=== PATIENT | female | born 1980 | race Caucasian/White ===

== ENCOUNTER → 2017-05-23 | Outpatient (CLI) | payer MEDICAID ==
[~2017-05-23] MED LIST: ONDA1TAB17 PO; PREN29TA PO
== END ==
LOC: HPND 09:40
PROVIDERS: ATTEND Family Medicine
DX: O09.521 Supervision of elderly multigravida, first trimester (principal)
CPT/HCPCS: 36415; 76813

== ENCOUNTER → 2017-07-04 | Outpatient (CLI) | payer MEDICAID ==
[~2017-07-04] MED LIST changes: -ONDA1TAB17 PO; +ONDA8TAB7 PO
== END ==
LOC: HPND 08:08
PROVIDERS: ATTEND Family Medicine
DX: O09.522 Supervision of elderly multigravida, second trimester (principal); O35.1XX0 Maternal care for (suspected) chromosomal abnormality in fetus, not applicable or unspecified
CPT/HCPCS: 76811; 76817

== ENCOUNTER → 2017-08-24 | Outpatient (CLI) | payer MEDICAID | LOC: HPND 07:58 | DX: O09.522 Supervision of elderly multigravida, second trimester (principal); O35.1XX0 Maternal care for (suspected) chromosomal abnormality in fetus, not applicable or unspecified | CPT/HCPCS: 76816 ==

== ENCOUNTER 2017-09-03 20:20 | Emergency (ER) | payer MEDICAID ==
[~2017-09-03] VITALS: Ht 167.6 cm; Wt 68.9 kg
[~2017-09-03 20:20] MED LIST changes: +SUCR1TAB PO
[2017-09-03 21:01] VITALS: BP 115/56; PULSE 80; RESP 18; TEMP 98; O2SAT 98
--- NOTE | 2017-09-03 22:07 | PD ---
HPI Chief Complaint: Cold / Flu Symptoms Time Seen by Provider: 21:36 Travel History International Travel<30 days: No Contact w/Intl Traveler<30days: No Traveled to known affect area: No History of Present Illness HPI 36yo F with no PMH who is 28 weeks here just to see if she has the flu. Pt said her daughter has flu like symptoms and her son is coughing. She started feeling scratchy throat today and wants to check it out. Denies any fever, chest pain, sob, n/v, abdominal pain, vaginal bleeding or vaginal discharge. Denies any urinary complaints. PFSH Past Medical History Diminished Hearing: No Tetanus Vaccination: Unknown Influenza Vaccination: Yes ?: Social History Alcohol Use: No Tobacco Use: No Substance Use: No Allergies-Medications (Allergen,Severity, Reaction): Coded Allergies: No Known Allergies (Unverified Adverse Reaction, Unknown, 09/03/17) Reported Meds & Prescriptions Reported Meds & Active Scripts Active Review of Systems Except as stated in HPI: all other systems reviewed are Neg Physical Exam Narrative GENERAL: 36yo F not in distress. SKIN: Focused skin assessment warm/dry. HEAD: Atraumatic. Normocephalic. EYES: Pupils equal and round. No scleral icterus. No injection or drainage. ENT: No nasal bleeding or discharge. Mucous membranes pink and moist. NECK: Throat: Clear. No exudate. CARDIOVASCULAR: Regular rate and rhythm. No murmur appreciated. RESPIRATORY: No accessory muscle use. Clear to auscultation. Breath sounds equal bilaterally. GASTROINTESTINAL: Abdomen soft, gravid abdomen. Not tender to palpation. MUSCULOSKELETAL: No obvious deformities. No clubbing. No cyanosis. No edema. NEUROLOGICAL: Awake and alert. No obvious cranial nerve deficits. Motor grossly within normal limits. Normal speech. PSYCHIATRIC: Appropriate mood and affect; insight and judgment normal. Data Data Last Documented VS Vital Signs Date Time Temp Pulse Resp B/P (MAP) Pulse Ox O2 Delivery O2 Flow Rate FiO2 09/03/17 21:01 98.0 80 18 115/56 (75) 98 Orders Orders Influenzae A/B Antigen (09/03/17 20:43) Group A Rapid Strep Screen (09/03/17 20:43) Strep Culture (Group A) (09/03/17 20:34) Acetaminophen (Tylenol) (09/03/17 22:15) Oseltamivir (Tamiflu) (09/03/17 22:15) Ed Discharge Order (09/03/17 22:49) MDM Medical Decision Making Medical Screen Exam Complete: Yes Emergency Medical Condition: Yes Differential Diagnosis Influenza vs. URI Narrative Course 36yo F who is 28 weeks and who is the mother of 2 other patients here just to make sure she does not have the flu since daughter has flu like symptoms. Positive for Flu B antigen. Group A strep negative. Pt given acetaminophen and tamiflu. Return precautions given. Diagnosis Primary Impression: Influenza B Patient Instructions: General Instructions Departure Forms: Tests/Procedures Additional Instructions: Please follow up with your primary care physician in 2-3 days. Return to the ED if symptoms worsen. Med/Other Pt SpecificInfo: Prescription(s) given Scripts Oseltamivir (Tamiflu) 75 Mg Cap 75 MG PO BID for Mgmt Viral Infection for 5 Days, #10 CAP 0 Refills Prov: DawsonSowmya 09/03/17 Disposition: 01 DISCHARGE HOME Condition: Stable Sowmya Dawson DO Sep 03, 2017 22:07
[2017-09-03] MEDS ORDERED: OSELTAMIVIR PHOSPHATE 75 MG CAP PO ONE (22:15)
[2017-09-03] MEDS ORDERED: ACETAMINOPHEN 325 MG TAB PO ONE (22:15)
[2017-09-03] MEDS ORDERED: OSEL75 PO (22:50)
== END 2017-09-03 23:20 | disposition home or self-care (01) ==
LOC: PHEFT 20:20
DX: O99.513 Diseases of the respiratory system complicating pregnancy, third trimester (principal); J10.1 Influenza due to other identified influenza virus with other respiratory manifestations; Z3A.28 28 weeks gestation of pregnancy
CPT/HCPCS: 87081; 87804; 87880; 99283

== ENCOUNTER 2017-10-11 13:35 | Emergency (ER) | payer MEDICAID ==
[~2017-10-11] VITALS: Ht 167.6 cm; Wt 66.2 kg
[~2017-10-11 13:35] MED LIST changes: -ONDA8TAB7 PO; +OSEL75 PO; -PREN29TA PO; -SUCR1TAB PO
[2017-10-11] MEDS ORDERED: ONDANSETRON HCL 4 MG/2 ML VIAL IV PUSH PRN ×2 (14:45→15:00)
[2017-10-11] MEDS ORDERED: ONDANSETRON ODT 4 MG TAB PO PRN (14:45)
--- NOTE | 2017-10-11 14:49 | PD ---
HPI Travel History International Travel<30 Days: No Contact w/Intl Traveler<30Days: No Known Affected Area: No History of Present Illness HPI Patient is a 37-year-old at 33/0 presenting today for nausea, vomiting, diarrhea. Patient reports she has had several episodes of nausea and vomiting since last night. Has been unable to keep down foods and liquids. Notes she did have 2 glasses of water this morning however vomited after drinking them. Reports some diarrhea this morning prior to coming to the ED. Notes some mild, rare "Chandler Bryson contractions". Denies fever, chills, flank pain, constant abdominal pain, abnormal discharge, bloody discharge, dysuria, hematuria, abnormal color or smell of urine, headache, change in vision, lightheadedness, dizziness. No other complaints at this time. Weeks Gestation: 33 Para: 2 : 4 Miscarriage: 1 : 0 History Past Medical History Narrative Medical Fibroids Anxiety Past Surgical History Surgical History: No Previous Surgery Family History Family History: Negative Social History Alcohol Use: No Tobacco Use: No Substance Abuse: No Allergies-Medications (Allergen,Severity, Reaction): Coded Allergies: No Known Allergies (Unverified Adverse Reaction, Unknown, 09/03/17) Home Meds Discontinued Scripts Oseltamivir (Tamiflu) 75 Mg Cap, 75 MG PO BID for Mgmt Viral Infection for 5 Days, #10 CAP 0 Refills Prov:Sowmya Dawson DO 09/03/17 Review of Systems General / Constitutional: No: Fever, Chills Eyes: No: Diploplia, Blurred Vision, Pain HENT: No: Headaches, Vertigo, Lightheadedness Cardiovascular: No: Irregular Rhythm, Chest Pain or Discomfort, Palpitations, Tachycardia Respiratory: No: Cough, Short of Breath, Wheezing Gastrointestinal: Diarrhea, No: Nausea, Vomiting, Abdominal Pain, Hematemesis, Hematochezia, Constipation, Changes in Bowel Habits Genitourinary: No: Urgency, Frequency, Dysuria, Nocturia, Hematuria, Discharge , Vaginal Bleeding Musculoskeletal: No: Limited ROM, Weakness Skin: No Rash, No Itching, No Dryness Neurologic: No: Weakness, Dizziness Psychiatric: Anxiety, No: Mood Disorder Endocrine: No: Polydipsia, Polyuria Hematologic/Lymphatic: No Easy Bruising, No Lymph Node Enlargement Physical Exam Narrative GENERAL: Well-nourished, well-developed patient. SKIN: Warm and dry. HEAD: Normocephalic and atraumatic. EYES: No scleral icterus. No injection or drainage. ENT: No nasal drainage noted. Mucous membranes pink. Airway patent. NECK: Supple, trachea midline. No JVD. CARDIOVASCULAR: Regular rate and rhythm without murmurs, gallops, or rubs. RESPIRATORY: Breath sounds equal bilaterally. No accessory muscle use. ABDOMEN/GI: Abdomen soft, non-tender, bowel sounds present, no rebound, no guarding FHT's: Category: 2 Baseline: 160 Reactive: Yes Variability: Moderate Decels: Variable FHT's: Following rehydration Category: 1 Baseline: 160 Reactive: Yes Variability: Moderate Decels: none EXTREMITIES: No cyanosis or edema. BACK: Nontender without obvious deformity. No CVA tenderness. NEUROLOGICAL: Awake and alert. Motor and sensory grossly within normal limits. Five out of 5 muscle strength in all muscle groups. Normal speech. Data Data Vital Signs Reviewed: Yes Orders Orders Ondansetron Inj (Zofran Inj) (10/11/17 14:45) Ondansetron Odt (Zofran Odt) (10/11/17 14:45) Ondansetron Inj (Zofran Inj) (10/11/17 15:00) MDM Plan Patient is a 37-year-old at 33/0 who presents today for nausea, vomiting, diarrhea. No diarrhea since early this morning. Nausea and vomiting have been controlled with Zofran administration. Dehydration -Encourage p.o. hydration -FHT category improved from category 2 to 1 following rehydration, reassuring -Patient to return for persistent dehydration, signs of labor, or any other significant concerns -Continue normal care -follow up with outpatient OB provider as needed ROSINA Jacques Diagnosis Diagnosis: Primary Impression: Antepartum dehydration Additional Impression: 33 weeks gestation of Disposition: 01 DISCHARGE HOME Condition: Stable Patient Instructions: General Instructions, Early Labor Signs (ED), Nausea and Vomiting in (ED) Kannan Lucas MD R1 Oct 11, 2017 14:49
[2017-10-11] MEDS ORDERED: ONDANSETRON HCL 4 MG/2 ML VIAL ONE (15:01)
[2017-10-11 15:15] VITALS: RESP 20
[2017-10-11 16:08] LABS: AUTOMATED NEUTROPHIL # 10.4 TH/MM3 (1.8-7.7); BASOPHIL % 0.1 % (0.0-2.0); HEMATOCRIT 34.5 % (35.0-46.0); HEMOGLOBIN 11.9 GM/DL (11.6-15.3); LYMPHOCYTE # 0.4 TH/MM3 (1.0-4.8); MEAN CORPUSCULAR HEMOGLOBIN 34.4 PG (27.0-34.0); MEAN CORPUSCULAR HGB CONC 34.4 % (32.0-36.0); MEAN PLATELET VOLUME 7.9 FL (7.0-11.0); MONOCYTE # 0.3 TH/MM3 (0-0.9); NEUT % 92.9 % (16.0-70.0); PLATELET COUNT 197 TH/MM3 (150-450); RED BLOOD COUNT 3.46 MIL/MM3 (4.00-5.30); RED CELL DISTRIBUTION WIDTH 12.8 % (11.6-17.2); WHITE BLOOD COUNT 11.2 TH/MM3 (4.0-11.0)
[2017-10-11 16:14] LABS: BICARBONATE 19.7 MEQ/L (21.0-32.0); CALCIUM 7.7 MG/DL (8.5-10.1); CREATININE 0.36 MG/DL (0.50-1.00)
[2017-10-11] MEDS: CALCIUM CARBONATE 500 MG CHEWABLE TAB CHEW PRN ×2 (16:31→17:48)
[2017-10-11] MEDS ORDERED: diphenhydrAMINE HCL 25 MG CAP PO ONE (16:45)
[2017-10-11] MEDS ORDERED: FAMOTIDINE 20 MG TAB PO ONE (18:00)
[2017-10-11] MEDS ORDERED: CALCIUM CARBONATE 500 MG CHEWABLE TAB CHEW ONE (18:30)
== END 2017-10-11 19:13 | disposition home or self-care (01) ==
LOC: HOBED 13:35
DX: O26.893 Other specified pregnancy related conditions, third trimester (principal); E86.0 Dehydration; O21.2 Late vomiting of pregnancy; R19.7 Diarrhea, unspecified; O99.343 Other mental disorders complicating pregnancy, third trimester; F41.9 Anxiety disorder, unspecified; Z3A.33 33 weeks gestation of pregnancy
CPT/HCPCS: 80048; 85025; 96361; 96374; 99284; J2405

== ENCOUNTER 2017-10-18 19:13 | Emergency (ER) | payer MEDICAID ==
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
[2017-10-18] MEDS ORDERED: ACETAMINOPHEN 325 MG TAB PO ONE (22:00)
== END 2017-10-18 22:34 | disposition home or self-care (01) ==
LOC: HOBED 19:13
DX: O26.893 Other specified pregnancy related conditions, third trimester (principal); M54.31 Sciatica, right side; M79.604 Pain in right leg; I83.91 Asymptomatic varicose veins of right lower extremity; Z3A.34 34 weeks gestation of pregnancy
CPT/HCPCS: 59025

== ENCOUNTER 2017-12-01 14:24 | Inpatient (IN) | payer MEDICAID ==
[2017-12-01] VITALS (37 sets, daily range): BP systolic 98–127; BP diastolic 66–89; PULSE 63–128; RESP 16–18; TEMP 97.7–98; O2SAT 100
--- NOTE | 2017-12-01 14:42 | PD ---
HPI Chief Complaint Contractions Date Seen: Dec 01, 2017 Travel History International Travel<30 Days: No Contact w/Intl Traveler<30Days: No History of Present Illness HPI Mrs. Kincaid is a 37-year-old presenting at 40/2 weeks gestation with a chief complaint of vaginal bleeding. Patient states that she was evaluated yesterday by her PCP, Dr. Marshall Glass at the [facility], and noticed she had some mild spotting after the exam. This morning after having intercourse with her significant other, she noticed that she started to have vaginal bleeding with bright red blood with one blood clot. She called the OB ED who recommended her come in for evaluation. She states that she has been "dizzy" for the last couple of days but denies any chest pain or palpitations. She believes that the baby has not been "as active this morning as usual." She denies any dysuria or vaginal discharge at this time. She states that the thus far has been uncomplicated. She confirms that she is GBS positive and has no known drug allergies. Weeks Gestation: 40 Para: 2 : 4 History Past Medical History Narrative Medical -Fibroids -Sciatic nerve pain Obstetric History Obstetric History -First 2 pregnancies SVDs, uncomplicated Past Surgical History Narrative Surgical None reported Family History Narrative Family History Parents healthy and living 2 healthy children Social History Narrative Social History -Lives with boyfriend and children -Denies tobacco use -Denies alcohol use -No illicit drug use Allergies-Medications (Allergen,Severity, Reaction): Coded Allergies: No Known Allergies (Unverified Adverse Reaction, Unknown, 09/03/17) Review of Systems Except as stated in HPI: all other systems reviewed are Neg Physical Exam Narrative GENERAL: Well-nourished, well-developed patient. SKIN: Warm and dry. HEAD: Normocephalic and atraumatic. EYES: No scleral icterus. No injection or drainage. ENT: No nasal drainage noted. Mucous membranes pink. Airway patent. NECK: Supple, trachea midline. No JVD. CARDIOVASCULAR: Regular rate and rhythm without murmurs, gallops, or rubs. RESPIRATORY: Breath sounds equal bilaterally. No accessory muscle use. ABDOMEN/GI: Abdomen soft, non-tender, bowel sounds present, no rebound, no guarding Gravid to 40 weeks GENITOURINARY: External Genitalia: intact and normal in appearance Cervix: Post. Dilatation: 3cm Effacement: 50% Station: -1 Membranes: Intact Uterine Contractions: Q4-5m FHT's: Category: 2 Baseline: 150s Reactive: Positive Variability: Minimal Decels: None EXTREMITIES: No cyanosis or edema. BACK: Nontender without obvious deformity. No CVA tenderness. NEUROLOGICAL: Awake and alert. Motor and sensory grossly within normal limits. Five out of 5 muscle strength in all muscle groups. Normal speech. Data Data Vital Signs Reviewed: Yes Orders Orders Vital Signs (Adult) .ON ADMISSION (12/01/17 14:31) ^ Labor Status (12/01/17 14:31) Heart (12/01/17 14:31) ^ Non Stress Test (12/01/17 14:31) Group B Strep: Positive MDM Medical Record Reviewed: Yes Plan Ms. Kincaid is a 37-year-old presenting to the [facility] with contractions and bleeding. 1. IUP at 40 weeks -Continue routine antepartum care -Category 2 tracing initially, reactive with NST, currently category 1 tracing, reassuring -Bishops score 7 -Plan monitor for 2 hours and then re-check for active labor at this time 2. GBS Positive -NKDA -Plan to treat with Penicillin if admitted for labor DW: Dr. Conner [id number] update: -Cervical change to 4cm with continued contractions. -Plan to admit patient to L&D, orders placed -GBS positive, plan to treat with Penicillin G Diagnosis Diagnosis: Primary Impression: 40 weeks gestation of Additional Impression: Vaginal bleeding during Gigi King MD R2 Dec 01, 2017 14:42
[2017-12-01] MEDS ORDERED: DIPHTH/TETANUS/ACEL PERTUSSIS (BOOSTER) 0.5 ML VIAL/PFS IM ONE (16:00)
[2017-12-01] MEDS ORDERED: MEASLES, MUMPS, RUBELLA VACCINE 0.5 ML VIAL SQ ONE (16:00)
[2017-12-01] MEDS ORDERED: LACTATED RINGER'S 1000 ML INJ 1,000 ML IV SCH (17:29)
[2017-12-01] MEDS ORDERED: LACTATED RINGER'S 1000 ML INJ 1,000 ML IV PRN (17:29)
[2017-12-01] MEDS ORDERED: ONDANSETRON HCL 4 MG/2 ML VIAL IV PUSH PRN (17:30)
[2017-12-01] MEDS ORDERED: LIDOCAINE HCL 1% 50 ML VIAL INFIL PRN (17:30)
[2017-12-01] MEDS ORDERED: LIDOCAINE HCL 1% 50 ML VIAL I-DERMAL PRN (17:30)
[2017-12-01] MEDS ORDERED: SODIUM CHLORID 0.9% 500 ML INJ 500 ML IV PRN (17:30)
[2017-12-01] MEDS ORDERED: OXYTOCIN 30 UNITS-500ML PREMIX 500 ML IV ONE (17:30)
[2017-12-01] MEDS ORDERED: MINERAL OIL 10 ML VIAL TOPICAL PRN (17:30)
[2017-12-01] MEDS ORDERED: CITRIC ACID-SODIUM CITRATE LIQ 30 ML UDC PO SCH (17:30)
--- NOTE | 2017-12-01 17:37 | HHI.HP ---
History & Physical H&P HPI Chief Complaint Contractions Date Seen: Dec 01, 2017 Travel History International Travel<30 Days: No Contact w/Intl Traveler<30Days: No History of Present Illness HPI Mrs. Kincaid is a 37-year-old presenting at 40/2 weeks gestation with a chief complaint of vaginal bleeding. Patient states that she was evaluated yesterday by her PCP, Dr. Marshall Glass at the [facility], and noticed she had some mild spotting after the exam. This morning after having intercourse with her significant other, she noticed that she started to have vaginal bleeding with bright red blood with one blood clot. She called the OB ED who recommended her come in for evaluation. She states that she has been "dizzy" for the last couple of days but denies any chest pain or palpitations. She believes that the baby has not been "as active this morning as usual." She denies any dysuria or vaginal discharge at this time. She states that the thus far has been uncomplicated. She confirms that she is GBS positive and has no known drug allergies. Weeks Gestation: 40 Para: 2 : 4 History (Limited) History Past Medical History Narrative Medical -Fibroids -Sciatic nerve pain Obstetric History Obstetric History -First 2 pregnancies SVDs, uncomplicated Past Surgical History Narrative Surgical None reported Family History Narrative Family History Parents healthy and living 2 healthy children Social History Narrative Social History -Lives with boyfriend and children -Denies tobacco use -Denies alcohol use -No illicit drug use Allergies-Medications Allergies-Medications (Allergen,Severity, Reaction): Coded Allergies: No Known Allergies (Unverified Adverse Reaction, Unknown, 09/03/17) ROS Review of Systems Except as stated in HPI: all other systems reviewed are Neg Physical Exam Physical Exam Narrative GENERAL: Well-nourished, well-developed patient. SKIN: Warm and dry. HEAD: Normocephalic and atraumatic. EYES: No scleral icterus. No injection or drainage. ENT: No nasal drainage noted. Mucous membranes pink. Airway patent. NECK: Supple, trachea midline. No JVD. CARDIOVASCULAR: Regular rate and rhythm without murmurs, gallops, or rubs. RESPIRATORY: Breath sounds equal bilaterally. No accessory muscle use. ABDOMEN/GI: Abdomen soft, non-tender, bowel sounds present, no rebound, no guarding Gravid to 40 weeks GENITOURINARY: External Genitalia: intact and normal in appearance Cervix: Post. Dilatation: 3cm Effacement: 50% Station: -1 Membranes: Intact Uterine Contractions: Q4-5m FHT's: Category: 2 Baseline: 150s Reactive: Positive Variability: Minimal Decels: None EXTREMITIES: No cyanosis or edema. BACK: Nontender without obvious deformity. No CVA tenderness. NEUROLOGICAL: Awake and alert. Motor and sensory grossly within normal limits. Five out of 5 muscle strength in all muscle groups. Normal speech. Data Data Data Vital Signs Reviewed: Yes Orders Orders Vital Signs (Adult) .ON ADMISSION (12/01/17 14:31) ^ Labor Status (12/01/17 14:31) Heart (12/01/17 14:31) ^ Non Stress Test (12/01/17 14:31) Group B Strep: Positive MDM MDM Medical Record Reviewed: Yes Plan Ms. Kincaid is a 37-year-old presenting to the [facility] with contractions and bleeding. 1. IUP at 40 weeks -Continue routine antepartum care -Category 2 tracing initially, reactive with NST, currently category 1 tracing, reassuring -Bishops score 7 -Plan monitor for 2 hours and then re-check for active labor at this time 2. GBS Positive -NKDA -Plan to treat with Penicillin if admitted for labor DW: Dr. Conner [id number] update: -Cervical change to 4cm with continued contractions. -Plan to admit patient to L&D, orders placed -GBS positive, plan to treat with Penicillin G Diagnosis Diagnosis: Primary Impression: 40 weeks gestation of Additional Impression: Vaginal bleeding during Gigi King MD R2 Dec 01, 2017 14:42 Gigi King MD R2 Dec 01, 2017 17:37
[2017-12-01] MEDS ORDERED: OXYTOCIN 30 UNITS-500ML PREMIX 500 ML IV PRN (17:45)
[2017-12-01] MEDS ORDERED: SODIUM CHLOR 0.9% 1000 ML INJ 1,000 ML IV PRN (17:49)
[2017-12-01] MEDS ORDERED: PENICILLIN G POTASSIUM INJ 5,000,000 UNITS in SODIUM CHLORIDE 0.9% INJ 100 ML IV ONE (18:00)
[2017-12-01 18:08] LABS: AUTOMATED NEUTROPHIL # 8.2 TH/MM3 (1.8-7.7); BASOPHIL # 0.1 TH/MM3 (0-0.2); BASOPHIL % 0.8 % (0.0-2.0); EOSINOPHIL % 0.2 % (0.0-4.0); HEMATOCRIT 35.8 % (35.0-46.0); HEMOGLOBIN 12.2 GM/DL (11.6-15.3); LYMPH % 24.9 % (9.0-44.0); MEAN CELL VOLUME 95.7 FL (80.0-100.0); MEAN CORPUSCULAR HEMOGLOBIN 32.6 PG (27.0-34.0); MEAN PLATELET VOLUME 9.3 FL (7.0-11.0); MONO % 5.3 % (0.0-8.0); MONOCYTE # 0.6 TH/MM3 (0-0.9); NEUT % 68.8 % (16.0-70.0); PLATELET COUNT 185 TH/MM3 (150-450); RED BLOOD COUNT 3.74 MIL/MM3 (4.00-5.30); RED CELL DISTRIBUTION WIDTH 13.1 % (11.6-17.2); WHITE BLOOD COUNT 11.9 TH/MM3 (4.0-11.0)
[2017-12-01 18:12] LABS: BILIRUBIN, URINE NEG (NEG); BLOOD, URINE SMALL (NEG); GLUCOSE,URINE NEG (NEG); KETONE, URINE NEG (NEG); MUCUS URINE FEW /lpf (OCC); NITRITE,URINE NEG (NEG); PH, URINE 7.5 (5.0-8.5); SQUAMOUS EPITHELIAL CELL URINE <1 /hpf (0-5); URINE COLOR YELLOW (YELLW/STRAW); URINE LEUKOCYTE ESTERASE NEG (NEG)
[2017-12-01] MEDS ORDERED: LIDOCAINE 1%/EPINEPHrine 1:100,000 SOLN 30 ML VIAL ONE (18:16)
[2017-12-01] MEDS ORDERED: fentaNYL 2MCG-BUPIV 0.125% INJ 100 ML ONE (18:17)
[2017-12-01] MEDS ORDERED: ePHEDrine/NS 25 MG/5 ML SYRINGE IV PUSH PRN (19:30)
[2017-12-01] MEDS ORDERED: DO NOT ADMINISTER ANTICOAGULANTS PRN (19:30)
[2017-12-01] MEDS ORDERED: fentaNYL 2MCG-BUPIV 0.125% 100 ML EPIDURAL PRN (19:30)
[2017-12-01] MEDS ORDERED: NO SYSTEM NARCOTICS PRN (19:30)
--- NOTE | 2017-12-01 19:56 | PD.OB.DELI ---
Weeks gestation: 40 Gest age assessed date: Dec 01, 2017 Gest age assessed time: 19:55 Pt started active labor?: Yes Active labor start date: Dec 01, 2017 Medical induction of labor?: No Artificial rupture of membrane: No Anesthesia: Epidural Episiotomy: None Vaginal Delivery: Normal Presentation: Occiput anterior Nuchal Cord: x3 Delayed cord clamping (45 sec): Yes Infant: Male Delivery date: Dec 01, 2017 Delivery time: 19:33 One Minute : 7 Five Minute : 9 Weight: 3990g Placenta: Spontaneous delivery, Intact, 3 vessel cord Laceration: Vaginal laceration, 2 deg Repair: Chromic running Estimated blood loss: 250mL Additional Information assisted by Eagle Ugarte MD R2 Dec 01, 2017 19:56
[2017-12-01] MEDS ORDERED: OXYTOCIN 30 UNITS-500ML PREMIX 500 ML IV SCH (20:00)
[2017-12-01] MEDS ORDERED: ACETAMINOPHEN 325 MG TAB PO PRN (20:00)
[2017-12-01] MEDS ORDERED: oxyCODONE/ACETAMINOPHEN 5 MG/325 MG TAB PO PRN (20:00)
[2017-12-01] MEDS ORDERED: ZOLPIDEM TARTRATE 5 MG TAB PO PRN (20:00)
[2017-12-01] MEDS ORDERED: ONDANSETRON ODT 4 MG TAB PO PRN (20:00)
[2017-12-01] MEDS ORDERED: ALUMINUM/MAGNESIUM/SIMETH 30 ML CUP PO PRN (20:00)
[2017-12-01] MEDS ORDERED: SODIUM CHLORIDE 0.9% FLUSH 10 ML FLUSH IV FLUSH PRN (20:00)
[2017-12-01] MEDS ORDERED: DOCUSATE SODIUM 50 MG/SENNA 8.6 MG TAB PO PRN (20:00)
[2017-12-01] MEDS ORDERED: WITCH HAZEL 50%/GLYCERIN 12.5% 40 PAD JAR TOPICAL PRN (20:00)
[2017-12-01] MEDS: IBUPROFEN 800 MG TAB PO PRN (20:46)
[2017-12-01] MEDS ORDERED: SODIUM CHLORIDE 0.9% FLUSH 10 ML FLUSH IV FLUSH SCH (21:00)
[2017-12-01] MEDS ORDERED: PENICILLIN G POTASSIUM INJ 2,500,000 UNITS in SODIUM CHLORIDE 0.9% INJ 100 ML IV SCH (22:00)
[2017-12-02] MEDS: oxyCODONE/ACETAMINOPHEN 5 MG/325 MG TAB PO PRN ×5 (01:14→22:23)
[2017-12-02] MEDS: BENZOCAINE 20% TOPICAL SPRAY 60 ML CAN TOPICAL PRN (01:25)
--- NOTE | 2017-12-02 07:56 | HHI.OB ---
Subjective Post Day: 1 Remarks day #1. AFVSS overnight. Pain well-controlled. Decreased lochia. Denies dysuria. No breast tenderness. She is feeding the baby via breast/ formula. Appetite good. No nausea or vomiting. Endorses flatus. No bowel movement. Ambulating well. Denies calf pain, shortness of breath, or cough. Otherwise, she is doing well this morning and has no other complaints. Objective Vitals/I&O Vital Signs Date Time Temp Pulse Resp B/P (MAP) Pulse Ox O2 Delivery O2 Flow Rate FiO2 12/01/17 22:16 97.7 63 18 114/74 (87) 12/01/17 21:31 103 123/75 (91) 12/01/17 21:29 16 12/01/17 21:15 74 111/70 (84) 12/01/17 21:01 86 105/72 (83) 12/01/17 20:54 98.0 16 12/01/17 20:45 74 112/75 (87) 12/01/17 20:44 18 12/01/17 20:35 80 107/67 (80) 12/01/17 20:17 16 12/01/17 20:15 81 102/66 (78) 12/01/17 20:06 16 12/01/17 20:00 83 102/66 (78) 12/01/17 19:56 83 115/70 (85) 12/01/17 19:25 115 12/01/17 19:20 125 12/01/17 19:15 113 12/01/17 19:11 128 111/68 (82) 12/01/17 19:10 122 12/01/17 19:10 100 12/01/17 19:05 100 12/01/17 19:05 110 12/01/17 19:05 105 123/89 (100) 12/01/17 19:00 102 107/81 (90) 12/01/17 19:00 124 12/01/17 18:55 105 12/01/17 18:55 95 104/70 (81) 12/01/17 18:51 94 98/70 (79) 12/01/17 18:50 94 12/01/17 18:46 86 123/69 (87) 12/01/17 18:45 85 12/01/17 18:39 97.7 17 12/01/17 18:35 123/80 (94) 12/01/17 18:35 93 12/01/17 18:28 92 120/77 (91) 12/01/17 18:25 94 12/01/17 18:24 97 127/80 (96) 12/01/17 17:45 18 12/01/17 17:41 76 122/80 (94) 12/01/17 17:30 88 12/01/17 14:55 81 12/01/17 14:50 86 12/01/17 14:47 97.7 81 18 119/82 (94) Objective Remarks GENERAL: Well-nourished, well-developed patient. CARDIOVASCULAR: Regular rate and rhythm without murmurs, gallops, or rubs. RESPIRATORY: Breath sounds equal bilaterally. No accessory muscle use. ABDOMEN/GI: Abdomen soft, non-tender. Fundus: Firm, non-tender at umbilicus. GENITOURINARY: Light to moderate bleeding. EXTREMITIES: No cyanosis or edema, non-tender, without signs of DVT. Medications and IVs Current Medications Medications (Trade) Dose Ordered Sig/Jenaro Route Start Time Stop Time Status Last Admin Lactated Ringer's 1,000 ml @ 125 mls/hr Q8H IV 12/01/17 17:29 12/01/17 17:58 Lactated Ringer's 1,000 ml @ 3,000 mls/hr Q20M PRN IV 12/01/17 17:29 Sodium Chloride 1,000 ml @ 100 mls/hr Q10H PRN IV 12/01/17 17:49 (Xylocaine 1% Inj (50 ml)) 0.1 ml UNSCH X1 PRN I-DERMAL 12/01/17 17:30 12/04/17 17:29 (Bicitra Liq) 30 ml CHOIRMASTER PO 12/01/17 17:30 12/05/17 17:29 (Zofran Inj) 4 mg Q6H PRN IV PUSH 12/01/17 17:30 Penicillin G Potassium [id number] units/Sodium Chloride 100 ml @ 200 mls/hr Q4H IV 12/01/17 22:00 (Xylocaine 1% Inj (50 ml)) 10 ml UNSCH X1 PRN INFIL 12/01/17 17:30 12/03/17 17:29 (Muri-Lube Oil) 10 ml UNSCH PRN TOPICAL 12/01/17 17:30 Oxytocin 500 ml @ 0 mls/hr TITRATE PRN IV 12/01/17 17:45 ([facility]) No systemic narcotics to be given except... UNSCH PRN .XX 12/01/17 19:30 12/02/17 19:29 ([facility]) DO NOT ADMINISTER ANY ANTICOAGUL... UNSCH PRN .XX 12/01/17 19:30 12/02/17 19:29 Fentanyl/ Bupivacaine HCl 100 ml @ 0 mls/hr TITRATE PRN EPIDURAL 12/01/17 19:30 (ePHEDrine/NS 25 MG/5 ML SYR) 10 mg UNSCH PRN IV PUSH 12/01/17 19:30 12/02/17 19:29 (NS Flush) 2 ml BID IV FLUSH 12/01/17 21:00 (NS Flush) 2 ml UNSCH PRN IV FLUSH 12/01/17 20:00 (Tylenol) 650 mg Q4H PRN PO 12/01/17 20:00 (Motrin) 800 mg Q8H PRN PO 12/01/17 20:00 12/01/17 20:46 (Percocet 5-325 Mg) 1 tab Q4H PRN PO 12/01/17 20:00 12/02/17 01:14 (Percocet 5-325 Mg) 2 tab Q4H PRN PO 12/01/17 20:00 (Americaine 20% Top Spr) 1 spray Q4H PRN TOPICAL 12/01/17 20:00 12/02/17 01:25 (Tucks Pads) 1 applic QID PRN TOPICAL 12/01/17 20:00 (Makeda-Colace) 2 tab Q12H PRN PO 12/01/17 20:00 (Ambien) 5 mg HS PRN PO 12/01/17 20:00 (Mag-Al Plus Susp Liq) 15 ml Q8H PRN PO 12/01/17 20:00 (Zofran Odt) 4 mg Q6H PRN PO 12/01/17 20:00 Assessment/Plan Assessment and Plan 37y/o who is PPD#1 s/p . -Continue routine care. -Percocet and Motrin PRN pain. -Encouraged OOB. Advised pelvic rest for 6 wks. -Will need a f/u appt. within 6 wks. -Re: ctrl, she is undecided -D/c in 1-2 more days. Eagle Glass MD R2 Dec 02, 2017 07:56
[2017-12-02 08:00] VITALS: BP 97/74; PULSE 78; RESP 20; TEMP 97.6; O2SAT 97
[2017-12-02] MEDS: IBUPROFEN 800 MG TAB PO PRN ×2 (09:09→17:44)
[2017-12-02] MEDS ORDERED: IBUP1TAB7 PO (11:36)
[2017-12-02] MEDS ORDERED: PERI PO (11:36)
[2017-12-02 19:35] VITALS: TEMP 97.6
[2017-12-03] MEDS: oxyCODONE/ACETAMINOPHEN 5 MG/325 MG TAB PO PRN ×2 (04:19→08:26)
[2017-12-03] MEDS: IBUPROFEN 800 MG TAB PO PRN ×2 (04:19→11:54)
--- NOTE | 2017-12-03 07:38 | HHI.OB ---
Subjective Post Day: 2 Remarks day #2. AFVSS overnight. Pain improving, well-controlled. Decreased lochia. Denies dysuria. No breast tenderness. She is feeding the baby via breast/formula. Appetite good. No nausea or vomiting. Endorses flatus. No bowel movement yet. Ambulating well. Denies calf pain, shortness of breath, or cough. Otherwise, she is doing well this morning and has no other complaints. Objective Vitals/I&O Vital Signs Date Time Temp Pulse Resp B/P (MAP) Pulse Ox O2 Delivery O2 Flow Rate FiO2 12/02/17 19:35 97.6 12/02/17 08:00 97.6 20 97 12/02/17 08:00 78 97/74 (82) Objective Remarks GENERAL: Well-nourished, well-developed patient. CARDIOVASCULAR: Regular rate and rhythm without murmurs, gallops, or rubs. RESPIRATORY: Breath sounds equal bilaterally. No accessory muscle use. ABDOMEN/GI: Abdomen soft, non-tender. Fundus: Firm, non-tender at umbilicus. GENITOURINARY: Light to moderate bleeding. EXTREMITIES: No cyanosis or edema, non-tender, without signs of DVT. Medications and IVs Current Medications Medications (Trade) Dose Ordered Sig/Jenaro Route Start Time Stop Time Status Last Admin Lactated Ringer's 1,000 ml @ 125 mls/hr Q8H IV 12/01/17 17:29 12/01/17 17:58 Lactated Ringer's 1,000 ml @ 3,000 mls/hr Q20M PRN IV 12/01/17 17:29 Sodium Chloride 1,000 ml @ 100 mls/hr Q10H PRN IV 12/01/17 17:49 (Xylocaine 1% Inj (50 ml)) 0.1 ml UNSCH X1 PRN I-DERMAL 12/01/17 17:30 12/04/17 17:29 (Bicitra Liq) 30 ml CONTINUUM OF CARE MANAGER PO 12/01/17 17:30 12/05/17 17:29 (Zofran Inj) 4 mg Q6H PRN IV PUSH 12/01/17 17:30 (Xylocaine 1% Inj (50 ml)) 10 ml UNSCH X1 PRN INFIL 12/01/17 17:30 4/30/18 17:29 (Muri-Lube Oil) 10 ml UNSCH PRN TOPICAL 12/01/17 17:30 Oxytocin 500 ml @ 0 mls/hr TITRATE PRN IV 12/01/17 17:45 Fentanyl/ Bupivacaine HCl 100 ml @ 0 mls/hr TITRATE PRN EPIDURAL 12/01/17 19:30 (NS Flush) 2 ml BID IV FLUSH 12/01/17 21:00 (NS Flush) 2 ml UNSCH PRN IV FLUSH 12/01/17 20:00 (Tylenol) 650 mg Q4H PRN PO 12/01/17 20:00 (Motrin) 800 mg Q8H PRN PO 12/01/17 20:00 12/03/17 04:19 (Percocet 5-325 Mg) 1 tab Q4H PRN PO 12/01/17 20:00 12/03/17 04:19 (Percocet 5-325 Mg) 2 tab Q4H PRN PO 12/01/17 20:00 (Americaine 20% Top Spr) 1 spray Q4H PRN TOPICAL 12/01/17 20:00 12/02/17 01:25 (Tucks Pads) 1 applic QID PRN TOPICAL 12/01/17 20:00 (Makeda-Colace) 2 tab Q12H PRN PO 12/01/17 20:00 (Ambien) 5 mg HS PRN PO 12/01/17 20:00 (Mag-Al Plus Susp Liq) 15 ml Q8H PRN PO 12/01/17 20:00 (Zofran Odt) 4 mg Q6H PRN PO 12/01/17 20:00 Assessment/Plan Assessment and Plan 37y/o who is PPD#2 s/p . -Continue routine care. -Percocet and Motrin PRN pain. -Encouraged OOB. Advised pelvic rest for 6 wks. -Will need a f/u appt. within 6 wks. -Re: ctrl, she wants Depo shot for now -D/c today Eagle Glass MD R2 Dec 03, 2017 07:38
--- NOTE | 2017-12-03 07:39 | HHI.DCPOC ---
Discharge Care Plan Diagnosis: (1) care following vaginal delivery Report Symptoms to Your Doctor -Temperature above 100.5 degrees -Redness, of incision or excessive or foul smelling drainage -Unusual pain or calf pain -Increased vaginal bleeding -Painful or difficulty urinating -Feelings of extreme sadness or anxiety after 2 weeks Goals to Promote Your Health * To prevent worsening of your condition and complications * To maintain your health at the optimal level Directions to Meet Your Goals Take your medications as prescribed Follow your dietary instruction Follow activity as directed Ensure plenty of rest for recovery Drink fluids for hydration Keep your appointments as scheduled Take your immunizations and boosters as scheduled If your symptoms worsen call your PCP, if no PCP go to Urgent Care Center or Emergency Room Smoking is Dangerous to Your Health. Avoid second hand smoke Call the 24-hour crisis hotline for domestic abuse at Eagle Glass MD R2 Dec 03, 2017 07:39
[2017-12-03 08:00] VITALS: BP 115/83; PULSE 81; RESP 18; TEMP 98; O2SAT 96
[2017-12-03] MEDS ORDERED: medroxyPROGESTERone ACETATE SUSP 150 MG/ML SYRINGE IM ONE (08:00)
[2017-12-03] MEDS: BENZOCAINE 20% TOPICAL SPRAY 60 ML CAN TOPICAL PRN (14:57)
== END 2017-12-03 16:08 | disposition home or self-care (01) | DRG 774 ==
LOC: HOBED 14:24 → H2EA 17:38 → H1EA 22:07
PROVIDERS: ADMIT Obstetrics & Gynecology Obstetrics; ATTEND Obstetrics & Gynecology Obstetrics
PROC: 10E0XZZ Delivery of Products of Conception, External Approach (ICD-10-PCS; principal; 2017-12-01)
PROC: 0KQM0ZZ Repair Perineum Muscle, Open Approach (ICD-10-PCS; 2017-12-01)
DX: O46.93 Antepartum hemorrhage, unspecified, third trimester (principal); O71.4 Obstetric high vaginal laceration alone; O99.824 Streptococcus B carrier state complicating childbirth; O69.81X0 Labor and delivery complicated by cord around neck, without compression, not applicable or unspecified; Z37.0 Single live birth; Z3A.40 40 weeks gestation of pregnancy
CPT/HCPCS: 59025; 80307; 81001; 85025; 85461; 86850; 86900; 86901; 90384; G0481; J1050; J2540; J2790; J3010; J7120